=== PATIENT | female | born 1945 | race Caucasian/White ===

== ENCOUNTER 2017-12-14 15:07 | Emergency (ER) | payer OTHER ==
[2017-12-14] MEDS ORDERED: IBUPROFEN 600 MG TAB PO ONE (15:29)
--- NOTE | 2017-12-14 15:37 | EDPHY ---
H & P Time Seen by Provider: 12/14/17 15:13 HPI/ROS: HPI Right foot pain. 72-year-old female by private vehicle with her . This patient reports that since yesterday she has had distal dorsal mid right foot pain. No history of trauma or fall. She describes the pain is mostly on the dorsal aspect of the foot and across the metatarsophalangeal joints 1 through 3. She also describes having mild diffuse swelling of her foot. She recently got off a course of Keflex for treatment of an infection secondary to an ingrown toenail involving her left big toe. She has no history of gouty arthritis or other arthritis. She was seen at an urgent care before being sent to the emergency department. She had x-rays done at the urgent care which were read as negative. ROS: Constitutional: No fever, no chills. No weakness. Respiratory: No cough. No shortness of breath. Cardiac: No chest pain, no palpitations. Musculoskeletal: No back pain. No neck pain. As above. Skin: No rashes. As above. Neurological: No headache. No focal weakness or altered sensation. Past medical history: Type 2 diabetes she takes metformin, hyperlipidemia, hypertension, retinitis pigmentosa, kidney stones, hypothyroid, Audi syndrome. Social history: No alcohol. Nonsmoker. Here with her . Physical Exam: General Appearance: Alert, no distress. This patient is responding to questions appropriately and in full sentences. This patient appears well- hydrated and well-nourished. Eyes: Pupils equal and round no pallor or injection. No lid edema, erythema or injection. Right foot examination: There is no significant bony tenderness on palpation. No tophus. She has a faint swelling involving the dorsal aspect of the distal foot over the distal metatarsals metatarsal phalangeal joints 1 through 3. There is perhaps subtle erythema but no significant warmth over the dorsal distal aspect of the metatarsals 2 through 4, there is no pain on axial compression of the metatarsophalangeal joints digits 1 through 5. There is a very slight asymmetric swelling of the right ankle and calf relative to the left side. The right foot is neurovascularly intact. Neurological: Motor sensory function is grossly intact. Cranial nerves are normal. Gait is normal. Skin: Warm and dry, as above. Extremities are symmetrical except noted. All joints range without pain or impingement. Psychiatric: No agitation. No depression. Database: EKG: Imaging: Right lower extremity ultrasound: Negative for DV T. Results discussed with staff radiologist Dr. Joseph Valentine. Procedures: Emergency department course: Triage vital signs reviewed. She is moderately hypertensive. Vital signs are otherwise normal. She is afebrile. She was given 600 mg of ibuprofen. Her presentation is consistent with an inflammatory process possibly and arthritis. Gout and pseudogout are unlikely. Cellulitis, osteomyelitis, infectious etiology unlikely as well. 4:50 p.m., patient re-evaluated. Resting comfortably at this time. No change in examination of her foot. Results of ultrasound discussed. Plan at this time will be conservative management with high-dose ibuprofen over the next 3 days. Strict return to emergency department precautions discussed with her and her . Follow-up reviewed. All of her questions were answered. She feels comfortable going home. She was discharged from the emergency department in good condition. Differential Diagnosis: The differential diagnosis on this patient includes but is not limited to inflammatory arthritis, early cellulitis, DVT, gouty arthritis. This represents a partial list of diagnoses considered. These considerations are based on history, physical exam, past history, reassessment and diagnostic testing. Smoking Status: Never smoked Constitutional: Initial Vital Signs Temperature (C) 36.9 C 12/14/17 15:17 Heart Rate 75 12/14/17 15:17 Respiratory Rate 16 12/14/17 15:17 Blood Pressure 149/88 H 12/14/17 15:17 O2 Sat (%) 92 12/14/17 15:17 O2 Delivery Mode Room Air Allergies/Adverse Reactions: No Known Allergies Allergy (Verified 12/14/17 15:28) Home Medications: Medication Instructions Recorded Lisinopril [Zestril 10 mg (*)] 40 02/27/14 Metformin HCl [Metformin 1000 mg] 500 mg 02/27/14 Verapamil [Calan 40MG (*)] 240 mg 02/27/14 Aspirin EC 81 mg (OTC) 09/25/14 Calcium [HI-ESPERANZA] 09/25/14 Cholecalciferol Vit D3 [Vitamin D3 09/25/14 (OTC)] Hydrochlorothiazide [HCTZ (*)] 09/25/14 Multivitamin (OTC) 09/25/14 Thyroxin 09/25/14 Pantoprazole Sodium 12/14/17 SIMVASTATIN 12/14/17 Medical Decision Making - Diagnostics Imaging Results: Imaging Impressions Extremity Venous Study 12/14/17 15:29 Impression: There is no sonographic evidence of deep or superficial vein thrombosis in the right lower extremity. Findings were discussed with Neela Caba MD at 16:52, on 2017. - Data Points Medications Given: Discontinued Medications Ibuprofen (Motrin) 600 mg PO EDNOW ONE Stop: 12/14/17 15:30 Last Admin: 12/14/17 15:34 Dose: 600 mg Departure - Departure Disposition: Home, Routine, Self-Care Clinical Impression: Right foot pain Condition: Good Instructions: Metatarsalgia (DC) Additional Instructions: Read and follow provided instructions. Follow-up with your primary care physician on Saturday for re-evaluation assuming you're condition improves. Ibuprofen dosin mg every 6 hours with meals for the next 3 days only. Take only as needed for pain. Advil liquid gels. We will try high-dose ibuprofen as discussed for its anti-inflammatory properties. I feel at this time that you do not have an infection and you do not require antibiotic. However, this is always a concern. If your foot becomes more painful, red, warm or if you developed fever you're to return to the emergency department immediately for re-evaluation. Return to the emergency department for worsening swelling, redness, warmth, fever, pain or other serious concerns. Referrals: Myra Hardy MD [Primary Care Provider] - As per Instructions
[2017-12-14 17:18] VITALS: BP 141/83
== END 2017-12-14 17:18 | disposition home or self-care (01) ==
LOC: CED 15:07
DX: M79.671 Pain in right foot (principal); M79.661 Pain in right lower leg
CPT/HCPCS: 93971-PO